=== PATIENT | male | born 1990 | race Caucasian/White ===

== ENCOUNTER → 2019-08-31 17:11 | Outpatient (CLI) | payer OTHER, SELFPAY ==
[2019-09-03 08:33] LABS: QNTFERON TB Mitogen Value > 10.00 IU/mL (.); QNTFERON TB Nil Value 0.07 IU/mL (.); QNTFERON TB1+ Ag Value 0.03 IU/mL (.); QNTFERON TB2+ Ag Value 0.02 IU/mL (.)
[2019-09-03 11:22] LABS: QNTIFERON TB Positive Criteria Negative (Negative)
== END ==
PROVIDERS: Family Provider Preventive Medicine Occupational Medicine; PCP Preventive Medicine Occupational Medicine; Referring Provider Preventive Medicine Occupational Medicine; Visit Provider Dermatology Pediatric Dermatology
DX: L40.0 Psoriasis vulgaris (principal); Z79.899 Other long term (current) drug therapy
CPT/HCPCS: 36415; 86480

== ENCOUNTER → 2020-05-27 06:50 | Outpatient (CLI) | payer OTHER, SELFPAY ==
--- NOTE | 2020-05-27 06:58 | CT_ITS ---
STUDY: CT ABDOMEN AND PELVIS WITHOUT CONTRAST REASON FOR EXAM: Male, 29 years old. Painful urination and frequency x several days, pelvic pain. No hx stones or prior surgery. RADIATION DOSAGE (If Supplied By Facility): CTDIvol = ( 15.66 ) mGy, DLP = ( 825.28 ) mGycm TECHNIQUE: Transaxial images were obtained from the dome of the diaphragm to the symphysis pubis without oral contrast, and without intravenous contrast. Sagittal and coronal images were reconstructed. Individualized dose optimization techniques were used for this CT. COMPARISON: None. FINDINGS: The visualized lung bases are unremarkable. The visualized portions of the heart are within normal limits. Normal liver. Normal gallbladder and extrahepatic biliary system. Normal spleen. Normal pancreas. Normal bilateral adrenal glands. Normal right kidney. Normal left kidney. Normal visualized stomach. Normal small intestine. Normal colon. The appendix is visualized and appears normal. Normal abdominal aorta. Normal inferior vena cava. Normal retroperitoneum. Normal urinary bladder. Normal abdominal wall. There is chronic bilateral pars defect of L5 with 5 mm spondylolisthesis at L5-S1. CT/Abdomen/Pelvis without Cont IMPRESSION: No acute abnormality of the abdomen and pelvis. There is chronic bilateral pars defect of L5 with 5 mm spondylolisthesis at L5-S1. Electronically Signed: Saba Coleman, at 7:53 EDT Tel , Service support ,
== END ==
PROVIDERS: PCP Preventive Medicine Occupational Medicine; Referring Provider Nurse Practitioner Primary Care; Visit Provider Nurse Practitioner Primary Care
DX: R10.9 Unspecified abdominal pain (principal); R31.9 Hematuria, unspecified
CPT/HCPCS: 74176